=== PATIENT | male | born 1965 | race Caucasian/White ===

== ENCOUNTER 2021-04-14 04:12 | Emergency (ER) | payer OTHER, SELFPAY ==
[2021-04-14] VITALS (8 sets, daily range): BP systolic 125–135; BP diastolic 79–90; PULSE 69–81; RESP 19–29; TEMP 36.4; O2SAT 94–100
--- NOTE | ~2021-04-14 | XR_ITS ---
EXAMINATION: XR shoulder LT min 2V DATE: 04/14/2021 04:45 INDICATION: Left shoulder pain. TECHNIQUE: 4 views of left shoulder were obtained. COMPARISON: None. FINDINGS: There is a large left pneumothorax. There is a comminuted fracture of left clavicle. The ma in distal fracture fragment demonstrates one half shaft width inferior displacement, 18 degrees infer ior angulation, and overriding. There is a fracture of acromion. There is mild osteoarthritis of niki ohumeral joint and acromioclavicular joint. There are fractures of left third-sixth ribs. IMPRESSION: 1. Large left pneumothorax. 2. Comminuted fracture of left clavicle. 3. Acute fractures of left third-sixth ribs. 4. Fracture of acromion of left scapula. 5. Polyarticular osteoarthritis. Reviewed, dictated and finalized at location A. CONDITIONER SUPERVISOR
--- NOTE | ~2021-04-14 | XR_ITS ---
EXAMINATION: XR hand RT min 3V DATE: 04/14/2021 04:45 INDICATION: Right thumb pain. TECHNIQUE: 3 views of right hand were obtained. COMPARISON: None. FINDINGS: There is a nondisplaced oblique extra-articular fracture of first distal phalanx. There is a nondisplaced fracture of radial base of first proximal phalanx. There is heterotopic ossification a t the medial and lateral aspects of first metacarpophalangeal joint. There is an old healed fracture deformity of fifth metacarpal. There is mild osteoarthritis of triscaphe joint, first carpometacarpal joint, and many of the interphalangeal joints and metacarpophalangeal joints. There is moderate oste oarthritis of first metacarpophalangeal joint and second and third distal interphalangeal joints. IMPRESSION: 1. Fractures of first proximal and distal phalanges. 2. Polyarticular osteoarthritis. Reviewed, dictated and finalized at location A. S ORDER PROCESSOR
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
--- NOTE | ~2021-04-14 | CT_ITS ---
EXAMINATION: CT cervical spine wo con DATE: 04/14/2021 05:11 INDICATION: Neck injury. TECHNIQUE: Computed tomography (CT) of the cervical spine was performed without intravenous contrast. Automated exposure control and iterative reconstruction technique were employed. The dose-length pro duct was 191.34 mGy-cm. COMPARISON: None FINDINGS: There is a large left pneumothorax. There is a comminuted fracture of left clavicle. There is 3 degrees levocurvature of cervical spine. Vertebral body heights and intervertebral disc heights are normal. The following disc levels are specifically discussed: C2-C3: There is no uncovertebral joint osteoarthritis. There is mild bilateral facet joint osteoarthr itis. There is no neural foraminal stenosis. There is no central canal stenosis. C3-C4: There is moderate right and mild left uncovertebral joint osteoarthritis. There is moderate bi lateral facet joint osteoarthritis. There is mild right neural foraminal stenosis. There is mild cent ral canal stenosis. C4-C5: There is mild bilateral uncovertebral joint osteoarthritis. There is severe bilateral facet saray int osteoarthritis. There is mild right neural foraminal stenosis. There is mild central canal stenos is. C5-C6: There is mild bilateral uncovertebral joint osteoarthritis. There is mild right and moderate l eft facet joint osteoarthritis. There is mild right neural foraminal stenosis. There is no central ca nal stenosis. C6-C7: There is no uncovertebral joint osteoarthritis. There is mild right and moderate left facet saray int osteoarthritis. There is mild left neural foraminal stenosis. There is no central canal stenosis. C7-T1: There is no uncovertebral joint osteoarthritis. There is moderate and mild left facet joint os teoarthritis. There is mild right neural foraminal stenosis. There is no central canal stenosis. IMPRESSION: 1. Large left pneumothorax. 2. Comminuted fracture of left clavicle. 3. Mild cervical spondylosis. Reviewed, dictated and finalized at location A. ITY TECHNICIAN
--- NOTE | ~2021-04-14 | XR_ITS ---
EXAMINATION: XR chest-chest tube insert/pos DATE: 04/14/2021 05:57 INDICATION: Left pneumothorax status post chest tube placement. TECHNIQUE: A single frontal view of the chest was obtained. COMPARISON: Chest single view at 4:29 AM FINDINGS: There is mild atelectasis in the mid and lower lung zones. No pleural effusion or pneumotho rax. A left-sided chest tube is seen in expected position. There is gas in left lateral chest wall. T he heart size is normal. There is a comminuted fracture of left clavicle. There is a fracture of left acromion. There are fractures of left third-sixth ribs. IMPRESSION: 1. No significant pneumothorax. Left-sided chest tube in expected position. 2. Mild atelectasis in the mid and lower lung zones. 3. Fractures involving the left clavicle, left acromion, and multiple left ribs. Reviewed, dictated and finalized at location A. ESPONDENCE SPECIALIST IMPRESSION: 1. No significant pneumothorax. Left-sided chest tube in expected position. 2. Mild atelectasis in the mid and lower lung zones. 3. Fractures involving the left clavicle, left acromion, and multiple left ribs .
--- NOTE | ~2021-04-14 | CT_ITS ---
EXAMINATION: CT brain wo con DATE: 04/14/2021 05:11 INDICATION: Head injury. TECHNIQUE: Computed tomography (CT) of the head was performed without intravenous contrast. The mA wa s adjusted according to patient size. Iterative reconstruction technique was employed. The dose-lengt h product was 681.00 mGy-cm. COMPARISON: None FINDINGS: There is no intracranial hemorrhage, acute infarction, or abnormal intracranial mass lesion . The ventricles are normal in size. There are likely changes of ocular lens replacement surgeries. T here is mucosal thickening in the paranasal sinuses with thickening and sclerosis of the sinus louis, consistent with chronic sinusitis. There are old fracture deformities of the nasal bones and nasal p rocesses of maxilla. The mastoid air cells are normal. There is left posterolateral scalp soft tissue swelling. IMPRESSION: 1. Normal brain. 2. Chronic sinusitis. Reviewed, dictated and finalized at location A. ENT PROCESSOR
--- NOTE | ~2021-04-14 | XR_ITS ---
EXAMINATION: XR clavicle LT DATE: 04/14/2021 04:45 INDICATION: Left shoulder pain. TECHNIQUE: 2 views of left clavicle were obtained. COMPARISON: None. FINDINGS: There is a large left pneumothorax. There are fractures of left third-sixth ribs. There is a comminuted fracture of left clavicle. The main distal fracture fragment demonstrates one half shaft width inferior displacement, 18 degrees inferior angulation, and overriding. There is a fracture of left acromion. There is mild osteoarthritis of the acromioclavicular joint and glenohumeral joint. IMPRESSION: 1. Comminuted fracture of left clavicle. 2. Fracture of left acromion. 3. Large left pneumothorax. 4. Acute left rib fractures. 5. Polyarticular osteoarthritis. Reviewed, dictated and finalized at location A. RETE FLOAT MAKER
--- NOTE | 2021-04-14 04:47 | PC.NURSE ---
Pt placed on 2 L NC O2. 1 L NS initiated by EMS in route infusing at this time.
--- NOTE | 2021-04-14 04:50 | PC.NURSE ---
Pt to CT via stretcher at this time. Pt on 2 L NC O2.
--- NOTE | 2021-04-14 05:28 | PC.NURSE ---
Per [facility] EDP Dr Ochoa, gave 2MG Morphine IVP for chest tube placement procedure. 12/06 pain at this time.
[2021-04-14] MEDS: MORPHINE SULFATE (*CRX) 2 MG/ML INJ ×2 (05:29→06:21)
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
--- NOTE | 2021-04-14 06:23 | PC.NURSE ---
1 L NS Infused (initiated by EMS in route), 0 volume left in container.
== END 2021-04-14 06:29 | disposition short-term general hospital (02) ==
PROVIDERS: Emergency Provider Emergency Medicine
DX: S27.0XXA Traumatic pneumothorax, initial encounter (principal); S42.022A Displaced fracture of shaft of left clavicle, initial encounter for closed fracture; S42.122A Displaced fracture of acromial process, left shoulder, initial encounter for closed fracture; S62.524A Nondisplaced fracture of distal phalanx of right thumb, initial encounter for closed fracture; S62.514A Nondisplaced fracture of proximal phalanx of right thumb, initial encounter for closed fracture; S22.42XA Multiple fractures of ribs, left side, initial encounter for closed fracture; M47.812 Spondylosis without myelopathy or radiculopathy, cervical region; J32.9 Chronic sinusitis, unspecified; M19.012 Primary osteoarthritis, left shoulder; M19.041 Primary osteoarthritis, right hand; M18.9 Osteoarthritis of first carpometacarpal joint, unspecified; Y93.55 Activity, bike riding; V10.4XXA Pedal cycle driver injured in collision with pedestrian or animal in traffic accident, initial encounter
CPT/HCPCS: 29130; 32551; 70450; 71045; 72125; 73000; 73030; 73130; 96374; 96376; 99291; J2270